=== PATIENT | male | born 1940 | race Caucasian/White ===

== ENCOUNTER → 2021-01-12 | Outpatient (CLI) | payer OTHER | LOC: KOH-I 14:51 | DX: J01.81 Other acute recurrent sinusitis (principal); J32.4 Chronic pansinusitis | CPT/HCPCS: 70486 ==

== ENCOUNTER 2022-02-19 20:44 | Emergency (ER) | payer OTHER ==
[2022-02-19 23:31] LABS: HEMOGLOBIN 14.7 gm/dl (14.0-17.5); WHITE BLOOD COUNT 6.8 K/UL (4.5-11.0)
[2022-02-19 23:56] LABS: BUN/CREATININE RATIO 17 (0-10)
[2022-02-20] MEDS ORDERED: ASPIRIN CHEWABL81 MG PO (01:05)
== END 2022-02-20 01:15 | disposition home or self-care (01) ==
LOC: ER1 20:44
PROVIDERS: Family Medicine
DX: R07.9 Chest pain, unspecified (principal)
CPT/HCPCS: 71046; 80053; 82550; 82553; 84484; 85025; 85379; 99285